=== PATIENT | male | born 1955 | race Caucasian/White ===

== ENCOUNTER 2024-07-20 04:36 | Emergency (ER) | payer MEDICARE ==
[2024-07-20 04:52] LABS: Appearance Clear (Clear); Bacteria None Seen /HPF (None Seen); Bilirubin Negative (Negative); Blood Negative (Negative); Epithelial Cells None Seen /HPF (None Seen); Glucose, Urine Negative (Negative); Hyaline Casts NONE SEEN /LPF (0-2); Ketones Negative (Negative); Leukocyte Esterase Negative (Negative); Nitrite Negative (Negative); Protein,Urine Dip Negative (Negative); RBC 0-2 /HPF (0-5); Specific Gravity <=1.005 (1.005-1.030); Urobilinogen 0.2 mg/dL (0.2); WBC 0-2 /HPF (0-5)
[2024-07-20 04:58] VITALS: TEMP 98.2; O2SAT 97
--- NOTE | 2024-07-20 05:58 | ERPHSYRPT ---
- History of Present Illness Time Seen by Provider: 07/20/24 05:25 Source: patient Exam Limitations: no limitations Patient Subjective Stated Complaint: c/o groin pain Triage Nursing Assessment: pt brought self to ED with c/o groin pain that has be en going for weeks but got worse yesterday evening. pain states he had trouble going up stairs and now cannot get comfortable, denies pain with palpation, and denies swelling. patient is hypertensive, rating pain 9/10 that is constant and radiates to back and lower abdomen, patient states he's been "gassy lately". gait steady, pulses nornal, skin w/n/d, afebrile, denies difficulty urinating, patient doesn't appear to be in any distress at this time. Physician History: The patient presents with intense groin pain and back trouble. The patient experiences intense groin pain, described as sore and radiating, which becomes particularly severe after physical activity, such as walking up steps. This pain affects daily activities, including bending over and taking the dog out. He initially considered the possibility of a hernia or kidney stones but has not noticed any blood in his urine. He has a history of hip issues, noting that his hips and associated muscles have been weakening. After retiring in 2022, he lost weight, which initially improved his condition, but pain recurred about four to five months ago. [place] may contribute to his symptoms. He mentions ongoing back trouble and a history of right knee issues, which have been problematic for a long time. He previously consulted with a doctor, suspecting the SI joint might be involved, but the current pain is primarily in the groin. Currently, he is not on any specific medication for these symptoms. Method of Injury: unknown Occurred: other (6 months, worse since yesterday) Quality: constant, sharpness, stabbing Severity of Pain-Max: severe Severity of Pain-Current: severe Lower Extremities Pain: hip: bilateral Modifying Factors: Improves With: nothing. Worsens With: movement Associated Symptoms: none Allergies/Adverse Reactions: No Known Drug Allergies Allergy (Verified 07/20/24 04:58) Home Medications: Amlodipine Besylate 10 mg PO HS 07/20/24 [History] Aspirin EC 81 mg [Ecotrin 81 mg] 81 mg PO DAILY 07/20/24 [History] Atorvastatin Calcium 20 mg PO DAILY 07/20/24 [History] Carvedilol 3.125 mg [Coreg 3.125 MG] 3.125 mg PO BID 07/20/24 [History] Eplerenone [Inspra] 50 mg PO DAILY 07/20/24 [History] Finasteride 1 mg PO DAILY 07/20/24 [History] Metformin HCl 500 mg [Glucophage 500 MG] 500 mg PO BID 07/20/24 [History] Omeprazole 40 mg PO DAILY 07/20/24 [History] Hx Tetanus, Diphtheria Vaccination/Date Given: No Hx Influenza Vaccination/Date Given: Yes Hx Pneumococcal Vaccination/Date Given: Yes Travel Risk - International Travel Have you traveled outside of the country in past 3 weeks: No - Emerging Infectious Disease Are you exhibiting symptoms associated with any current EIDs: No - Review of Systems All Other Systems: Reviewed and Negative - Past Medical History Pertinent Past Medical History: Yes ENT History: Cataracts Cardiac History: High Cholesterol, Hypertension Respiratory History: No Pertinent History Endocrine Medical History: No Pertinent History Musculoskeletal History: Osteoarthritis GI Medical History: GERD History: No Pertinent History Psycho-Social History: No Pertinent History Other Medical History: BPH - Past Surgical History Past Surgical History: Yes Musculoskeletal: Orthopedic Surgery Other Surgical History: two 2 knee surgeries - Social History Smoking Status: Never smoker Exposure to second hand smoke: No Drug Use: none - Social Determinants of Health Will the patient participate in the screening: Yes Do you worry about a steady place to live?: No Do you have any problems with any of the following?: No known problems In the past 12 months,have you had to go without utilities?: No Transportation Issues: No Has anyone in your support network made you feel unsafe?: No Have you or anyone in your house had to go without enough: No - Nursing Vital Signs Nursing Vital Signs: Initial Vital Signs Temperature 98.2 F 07/20/24 04:39 Pulse Rate 80 07/20/24 04:39 Respiratory Rate 18 07/20/24 04:39 Blood Pressure 173/92 07/20/24 04:39 O2 Sat by Pulse Oximetry 97 07/20/24 04:39 Pain Scale Pain Intensity 9 - Physical Exam General Appearance: no apparent distress Hips Exam: bilateral: non-tender, normal inspection, limited range of motion, other (limited internal rotation, + stinchfield, + scour) Neuro/Tendon Exam: normal sensation, normal motor functions, normal tendon functions, no evidence tendon injury Mental Status Exam: alert, oriented x 3, cooperative Skin Exam: normal color, warm, dry, No rash SpO2 Interpretation: normal SpO2: 97 O2 Delivery: Room Air Comments: SLR neg DEMOND neg FADIR pos No midline spine or SI tenderness - Course Nursing assessment & vital signs reviewed: Yes - Radiology Exams Hip X-ray Interpretation: Interpreted by me, No Fracture, Other (bilateral moderate to advanced OA of hip ) Ordered Tests: Active Orders 24 hr Category Date Time Status HIP MICKEY (4V) INCL PELV IF DONE Stat Exams 07/20/24 05:04 Taken UA W/RFX UR CULTURE Stat Lab 07/20/24 04:45 Completed Medication Summary Discontinued Medications Generic Name Dose Route Start Last Admin Trade Name Freq PRN Reason Stop Dose Admin Ibuprofen 800 mg 07/20/24 06:01 07/20/24 06:03 Ibuprofen 400 Mg Tablet PO 07/20/24 06:02 800 mg STAT ONE Administration Ibuprofen Confirm 07/20/24 06:03 Ibuprofen 400 Mg Tablet Administered 07/20/24 06:04 Dose 800 mg .ROUTE .STK-MED ONE Lab/Rad Data: Laboratory Results 07/20/24 Range/Units 04:45 Urine Color Yellow (Yellow) Urine Appearance Clear (Clear) Urine pH 7.0 (4.6-8.0) Ur Specific [place] <=1.005 (1.005-1.030) Urine Protein Negative (Negative) Urine Glucose (UA) Negative (Negative) mg/dL Urine Ketones Negative (Negative) Urine Blood Negative (Negative) Urine Nitrite Negative (Negative) Urine Bilirubin Negative (Negative) Urine Urobilinogen 0.2 (0.2) mg/dL Ur Leukocyte Esterase Negative (Negative) U Hyaline Cast (Auto) NONE SEEN (0-2) /LPF Urine Microscopic RBC 0-2 (0-5) /HPF Urine Microscopic WBC 0-2 (0-5) /HPF Ur Epithelial Cells None Seen (None Seen) /HPF Urine Bacteria None Seen (None Seen) /HPF Urine Culture Reflexed NO (NO) - Progress Progress: pain not gone completely Progress Note: Hip Osteoarthritis Presents with intense groin pain radiating to the lower back, worsening over months, exacerbated by weight-bearing activities. X-rays show significant arthritis in the right hip with femoral head changes and reduced joint space, indicating advanced osteoarthritis. Left hip shows less severe arthritis. Groin pain is typical of hip joint arthritis, not related to the knee. 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 Discussed steroid injection for temporary relief and hip replacement surgery for long-term resolution. Hip replacement typically results in better outcomes and quicker recovery compared to knee replacement, with post-operative pain less than pre- operative pain and rapid recovery, often allowing walking the same day. - Ibuprofen 800mg given in ER, will prescribe Ketorolac 10mg TID prn. - Encouraged steroid injection in the hip joint for temporary relief. - Refer to an orthopedic surgeon for evaluation and potential hip replacement surgery. - Provide exercises to stabilize the hip. Counseled pt/family regarding: diagnosis, need for follow-up, rad results Medical Desision Making - Diagnostic Testing Diagnostic test were ordered, analyzed, and reviewed by me: Yes Radiological Interpretation: Interpreted by me - Risk of complications The pt has a mod risk of morbidity or mortality based on: Need for prescription drug management - Departure Departure Disposition: Home Clinical Impression: Bilateral primary osteoarthritis of hip Condition: Good Critical Care Time: No Referrals: GUILLERMINA CLAROS MD [Primary Care Provider] - Follow up/PCP as directed Instructions: Hip pain in adults Prescriptions: Ketorolac Trometh 10 mg Tab [TORAdol 10 MG TABLET] 10 mg PO TID PRN 14 Days #42 tablet PRN Reason: Pain
[2024-07-20] MEDS: MOTRIN 400 MG PO ONE (06:03)
[2024-07-20] MEDS ORDERED: MOTRIN 400 MG ONE (06:03)
[2024-07-20 06:15] VITALS: BP 150/81; PULSE 65; RESP 20
--- NOTE | 2024-07-20 08:24 | XRAY ---
Indication: Bilateral groin pain. No known injury. Comparison: None 2 view left and right hip demonstrates osteopenia, mild bilateral scattered vascular calcifications, and a few pelvic phleboliths. No other bony, articular, or soft tissue abnormalities.
== END 2024-07-20 06:20 | disposition home or self-care (01) ==
LOC: ED 04:36
DX: M16.0 Bilateral primary osteoarthritis of hip (principal); R10.2 Pelvic and perineal pain; E78.5 Hyperlipidemia, unspecified; I10 Essential (primary) hypertension; Z79.84 Long term (current) use of oral hypoglycemic drugs; Z79.899 Other long term (current) drug therapy
CPT/HCPCS: 73522; 81001; 99283; 99284; A9270-GY